=== PATIENT | female | born 1930 | race Caucasian/White ===

== ENCOUNTER → 2016-09-13 | Outpatient (CLI) | payer MEDICARE, OTHER ==
[~2016-09-13] MED LIST: BARIUM SULFATE 40% (APPLE) 148 GM PWD. PO ONE
--- NOTE | 2016-09-13 11:55 | RAD ---
Fluoroscopic swallow study 09/05/2016 Indication: Dysphasia. Comparison: None. Findings: Video swallow study fluoroscopy was obtained in conjunction with a member from the speech pathology department with multiple barium consistencies self administered by the patient. There are shallow laryngeal penetration with thin barium consistency utilizing a straw. No aspiration with multiple barium consistencies. There is a prominent cricopharyngeal bar anterior to C5-C6. Total fluoroscopy time: 2.5 minutes. Impression: Laryngeal penetration without aspiration. Please see separate dictated speech pathology report for additional findings and recommendations.
== END | disposition home or self-care (01) ==
LOC: RAD 08:00
PROVIDERS: ATTEND Internal Medicine
DX: R13.12 Dysphagia, oropharyngeal phase (principal)
CPT/HCPCS: 74230; 92611; G8996; G8997; G8998

== ENCOUNTER 2018-07-03 10:49 | Emergency (ER) | payer MEDICARE, OTHER ==
[~2018-07-03] VITALS: Ht 160 cm; Wt 49.9 kg
[2018-07-03] MEDS ORDERED: IPRATRPIUM/ALBUTEROL 0.5/2.5MG 3 ML NEBU. NEB ONE (11:00)
[2018-07-03] MEDS ORDERED: BREO ELLIPTA 11 EACH IH (11:20)
[2018-07-03] MEDS ORDERED: MEMA1CAP3 PO (11:20)
[2018-07-03] MEDS ORDERED: IPRA3AMP29 NEB (11:20)
[2018-07-03] MEDS ORDERED: LISI10TA2 PO (11:20)
[2018-07-03] MEDS ORDERED: MULT-503 PO (11:20)
[2018-07-03] MEDS ORDERED: GUAI100L27 PO (11:20)
--- NOTE | 2018-07-03 11:23 | RAD ---
PORTABLE CHEST 1V History: Cough Comparison: October 11, 2017 Findings: Single view of the chest is submitted. There is some more coarse interstitial reticular opacity bilaterally, radiographically fairly similar. There is no new lobar consolidation, pleural fluid, pneumothorax. Heart size is stable, within normal limits. There are again likely some small nodular opacities of the hemithoraces otherwise difficult to compare, also small likely calcified granuloma on the left as seen previously. Impression: 1. There is no new lobar consolidation. There is some interstitial and reticular opacity bilaterally, component of interstitial lung disease possible. There are also likely some small nodular opacities bilaterally as seen previously difficult to accurately compare, better evaluated by nonemergent chest CT. Electronically signed by: Luther Mcneil MD (07/03/2018 11:19 AM) [id number]
--- NOTE | 2018-07-03 11:27 | RAD ---
Pelvis with right hip, 3 views, 07/03/2018: HISTORY: Fall, pain There is severe bony demineralization. An internal metallic fixation device is in place transfixing an old healed intertrochanteric fracture of the right hip. No acute fracture or dislocation is identified. There is mild narrowing of the right hip joint with mild marginal spurring. Moderate degenerative change is evident in the lower lumbar spine. Moderate scattered arterial calcifications are present. IMPRESSION: 1. Severe bony demineralization. 2. Old, healed, internally fixed right hip fracture. 3. No acute bony abnormality is detected. Electronically signed by: Alvarez Jiménez MD (07/03/2018 11:25 AM) [facility]
--- NOTE | 2018-07-03 11:45 | RAD ---
CT head without contrast and CT cervical spine without contrast dated 07/03/2018. No comparison available. Clinical data indication: Pain after fall. TECHNIQUE: Contiguous axial imaging the head was performed from skull base to vertex. No contrast administered. In addition, axial imaging of the cervical spine acquired with thin cut coronal and sagittal reconstruction. One or more of the following individualized dose reduction techniques were utilized for this examination: 1. Automated exposure control 2. Adjustment of the mA and/or kV according to patient size 3. Use of iterative reconstruction technique. FINDINGS: Ventricles and sulci are mildly prominent for age. No midline shift or mass effect. Mild patchy low density in the deep/subcortical periventricular white matter. No hemorrhage or extra-axial collection. Posterior fossa and brainstem unremarkable. Mild mucosal thickening of the bilateral ethmoid air cells. The visualized paranasal sinuses and mastoid air cells are otherwise clear. No apparent calvarial abnormality. Images of the cervical spine were acquired from skull base to mid T3. Slight anterolisthesis of C3 on C4 with cyst mild retrolisthesis of C5 on C6 and C6 on C7. There is mild superior endplate wedging of the T1 vertebral body without discrete fracture line. Vertebral body heights are otherwise maintained. No prevertebral soft tissue swelling. The posterior elements are intact. No apparent acute fracture line. Moderate endplate hypertrophic changes throughout. Severe disc space narrowing at C4-C5, C5-C6 and C6-C7. Moderate to severe multilevel uncovertebral spurring and facet arthropathy. There is resultant mild to moderate central stenosis at C4-C5, C5-C6 and C6-C7 with moderate to severe foraminal narrowing at these levels. Visualized soft tissue structures unremarkable. Low-density nodule of the left lobe thyroid gland measures 1.4 cm. Limited images of the lung apices show a small noncalcified pulmonary nodule in the left upper lobe on image 52 that measures 5 mm. There is also a noncalcified nodule in the right upper lobe on image 52 that measures 5 mm. Noncalcified nodule in the right upper lobe on image 56 measures 6 mm. Couple of additional smaller noncalcified nodules scattered throughout. There is a nodular density in the left upper lobe anteriorly on image 52 that measures 8 mm. IMPRESSION HEAD: 1. No evidence of acute intracranial hemorrhage or mass. 2. Mild chronic small vessel ischemic changes and atrophy. IMPRESSION CERVICAL SPINE: 1. No evidence of fracture or malalignment. 2. Moderate multilevel spondylosis. 3. Mild superior endplate wedge compression deformity of T1, likely remote. 4. Multiple noncalcified pulmonary nodules scattered throughout the bilateral upper lobes, indeterminate. This could be inflammatory or neoplastic. Correlate clinically. Electronically signed by: Joshua Grey MD (07/03/2018 11:42 AM) [email or web address]
[2018-07-03 11:54] LABS: BASO % 0 % (0-3); EOS % 0 % (0-3); HEMATOCRIT 35.1 % (36.0-47.0); HEMOGLOBIN 11.1 g/dL (12.0-15.5); LYMPH # 0.4 x10^3/uL (1.0-4.8); LYMPH % 5 % (24-48); MEAN CORPUSCULAR HEMOGLOBIN 28 pg (25-35); MEAN CORPUSCULAR HGB CONC 32 g/dL (31-37); MEAN CORPUSCULAR VOLUME 89 fL (79-100); MONO # 0.7 x10^3/uL (0.0-1.1); MONO % 9 % (0-9); NEUT # 6.9 x10^3uL (1.8-7.7); NEUT % 86 % (31-73); PLATELET COUNT 258 x10^3/uL (140-400); RED BLOOD COUNT 3.95 x10^6/uL (3.50-5.40); RED CELL DISTRIBUTION WIDTH 15.7 % (11.5-14.5)
[2018-07-03 12:18] LABS: % BANDS 17 % (0-9); % LYMPHS 2 % (24-48); % MONOS 6 % (0-10); % SEGS 75 % (35-66); PLT ESTIMATE ADEQUATE (ADEQUATE)
[2018-07-03 12:21] LABS: CALCIUM 9.8 mg/dL (8.5-10.1); CREATININE 1.1 mg/dL (0.6-1.0); POTASSIUM 4.1 mmol/L (3.5-5.1)
[2018-07-03 12:25] LABS: ALBUMIN 3.3 g/dL (3.4-5.0); ALBUMIN/GLOBULIN RATIO 0.8 (1.0-1.7); TOTAL BILIRUBIN 0.4 mg/dL (0.2-1.0); TOTAL PROTEIN 7.2 g/dL (6.4-8.2)
--- NOTE | 2018-07-03 13:30 | PHYS DOC ---
Past Medical History Past Medical History: Anemia, Arthritis, COPD, Dementia, Hypertension, Other Additional Past Medical Histor: PVD Past Surgical History: Other Additional Past Surgical Histo: unknown surgical history Alcohol Use: None Drug Use: None Adult General Chief Complaint Chief Complaint: MECHANICAL FALL HPI HPI Patient is a 88 [facility] female resident of [facility] with history of dementia who brought in by EMS because of a fall and right hip pain. Patient had an unwitnessed fall this morning from her bed and found on the floor and [facility] staff was concerned for right hip injury. Patient has dementia and unable to give history. Review of Systems Review of Systems Unable to obtain because of dementia Current Medications Current Medications Current Medications Medications (Trade) Dose Ordered Sig/Dulce Start Time Stop Time Status Last Admin Dose Admin Albuterol/ Ipratropium (Duoneb) 3 ml 1X ONCE 07/03/18 11:00 07/03/18 11:01 DC 07/03/18 11:36 3 ML Allergies Allergies Allergies Coded Allergies Type Severity Reaction Last Updated Verified No Known Drug Allergies 09/13/16 No Physical Exam Physical Exam Constitutional: Well nourished, no acute distress, non-toxic appearance. [] HENT: Normocephalic, atraumatic. Eyes: PERRLA, EOMI, conjunctiva normal, no discharge. [] Neck: Normal range of motion, no tenderness, supple, no stridor. [] Cardiovascular:Heart rate regular rhythm, no murmur [] Lungs & Thorax: Bilateral breath sounds clear to auscultation [] Abdomen: Bowel sounds normal, soft, no tenderness, no masses, no pulsatile masses. [] Skin: Warm, dry, no erythema, no rash. [] Back: No tenderness, no CVA tenderness. [] Extremities: No sign of hips injury, able to bend bilateral hip without problem, no tenderness, no cyanosis, no clubbing, ROM intact, no edema. [] Neurologic: Alert and oriented X 1, normal motor function, normal sensory function, no focal deficits noted. [] Psychologic: Unable to evaluate. Current Patient Data Vital Signs Vital Signs Date Time Temp Pulse Resp B/P (MAP) Pulse Ox O2 Delivery O2 Flow Rate FiO2 07/03/18 12:39 92 24 95 07/03/18 11:36 Nasal Cannula 2.0 07/03/18 10:50 98.1 151/83 (105) 98.1 Lab Values Laboratory Tests Test 07/03/18 11:40 White Blood Count 8.0 x10^3/uL (4.0-11.0) Red Blood Count 3.95 x10^6/uL (3.50-5.40) Hemoglobin 11.1 g/dL (12.0-15.5) L Hematocrit 35.1 % (36.0-47.0) L Mean Corpuscular Volume 89 fL (79-100) Mean Corpuscular Hemoglobin 28 pg (25-35) Mean Corpuscular Hemoglobin Concent 32 g/dL (31-37) Red Cell Distribution Width 15.7 % (11.5-14.5) H Platelet Count 258 x10^3/uL (140-400) Neutrophils (%) (Auto) 86 % (31-73) H Lymphocytes (%) (Auto) 5 % (24-48) L Monocytes (%) (Auto) 9 % (0-9) Eosinophils (%) (Auto) 0 % (0-3) Basophils (%) (Auto) 0 % (0-3) Neutrophils # (Auto) 6.9 x10^3uL (1.8-7.7) Lymphocytes # (Auto) 0.4 x10^3/uL (1.0-4.8) L Monocytes # (Auto) 0.7 x10^3/uL (0.0-1.1) Eosinophils # (Auto) 0.0 x10^3/uL (0.0-0.7) Basophils # (Auto) 0.0 x10^3/uL (0.0-0.2) Segmented Neutrophils % 75 % (35-66) H Band Neutrophils % 17 % (0-9) H Lymphocytes % 2 % (24-48) L Monocytes % 6 % (0-10) Platelet Estimate Adequate (ADEQUATE) Sodium Level 141 mmol/L (136-145) Potassium Level 4.1 mmol/L (3.5-5.1) Chloride Level 102 mmol/L (98-107) Carbon Dioxide Level 26 mmol/L (21-32) Anion Gap 13 (6-14) Blood Urea Nitrogen 34 mg/dL (7-20) H Creatinine 1.1 mg/dL (0.6-1.0) H Estimated GFR (Cockcroft-Gault) 47.0 BUN/Creatinine Ratio 31 (6-20) H Glucose Level 98 mg/dL (70-99) Lactic Acid Level 1.2 mmol/L (0.4-2.0) Calcium Level 9.8 mg/dL (8.5-10.1) Total Bilirubin 0.4 mg/dL (0.2-1.0) Aspartate Amino Transferase (AST) 20 U/L (15-37) Alanine Aminotransferase (ALT) 16 U/L (14-59) Alkaline Phosphatase 73 U/L (46-116) Creatine Kinase 41 U/L (26-192) Troponin I Quantitative < 0.017 ng/mL (0.000-0.055) WO-Ebs-M-Type Natriuretic Peptide 1307 pg/mL (0-449) H Total Protein 7.2 g/dL (6.4-8.2) Albumin 3.3 g/dL (3.4-5.0) L Albumin/Globulin Ratio 0.8 (1.0-1.7) L Laboratory Tests 07/03/18 11:40 Laboratory Tests 07/03/18 11:40 EKG EKG [] Radiology/Procedures Radiology/Procedures [facility] [address] [place], [place] [id number] IMAGING REPORT Signed PATIENT: SULLY GAMINO ACCOUNT: [id number] : 1930 LOCATION: ER AGE: 88 SEX: F EXAM STATUS: PRE ER ORD. PHYSICIAN: MELISSA ROSENBAUM MD REASON: cough PROCEDURE: PORTABLE CHEST 1V PORTABLE CHEST 1V History: Cough Comparison: October 11, 2017 Findings: Single view of the chest is submitted. There is some more coarse interstitial reticular opacity bilaterally, radiographically fairly similar. There is no new lobar consolidation, pleural fluid, pneumothorax. Heart size is stable, within normal limits. There are again likely some small nodular opacities of the hemithoraces otherwise difficult to compare, also small likely calcified granuloma on the left as seen previously. Impression: 1. There is no new lobar consolidation. There is some interstitial and reticular opacity bilaterally, component of interstitial lung disease possible. There are also likely some small nodular opacities bilaterally as seen previously difficult to accurately compare, better evaluated by nonemergent chest CT. Electronically signed by: Elle Vazquez MD (07/03/2018 11:19 AM) [facility] DICTATED and SIGNED BY: ELLE VAZQUEZ MD DATE: 07/03/18 1119 [facility] [address] [place] [address] IMAGING REPORT Signed PATIENT: SULLY GAMINO ACCOUNT: [id number] : 1930 LOCATION: ER AGE: 88 SEX: F EXAM STATUS: REG ER ORD. PHYSICIAN: MELISSA ROSENBAUM MD REASON: fall PROCEDURE: CT HEAD AND CERVICAL SPINE WO CT head without contrast and CT cervical spine without contrast dated 07/03/2018. No comparison available. Clinical data indication: Pain after fall. TECHNIQUE: Contiguous axial imaging the head was performed from skull base to vertex. No contrast administered. In addition, axial imaging of the cervical spine acquired with thin cut coronal and sagittal reconstruction. One or more of the following individualized dose reduction techniques were utilized for this examination: 1. Automated exposure control 2. Adjustment of the mA and/or kV according to patient size 3. Use of iterative reconstruction technique. FINDINGS: Ventricles and sulci are mildly prominent for age. No midline shift or mass effect. Mild patchy low density in the deep/subcortical periventricular white matter. No hemorrhage or extra-axial collection. Posterior fossa and brainstem unremarkable. Mild mucosal thickening of the bilateral ethmoid air cells. The visualized paranasal sinuses and mastoid air cells are otherwise clear. No apparent calvarial abnormality. Images of the cervical spine were acquired from skull base to mid T3. Slight anterolisthesis of C3 on C4 with cyst mild retrolisthesis of C5 on C6 and C6 on C7. There is mild superior endplate wedging of the T1 vertebral body without discrete fracture line. Vertebral body heights are otherwise maintained. No prevertebral soft tissue swelling. The posterior elements are intact. No apparent acute fracture line. Moderate endplate hypertrophic changes throughout. Severe disc space narrowing at C4-C5, C5-C6 and C6-C7. Moderate to severe multilevel uncovertebral spurring and facet arthropathy. There is resultant mild to moderate central stenosis at C4-C5, C5-C6 and C6-C7 with moderate to severe foraminal narrowing at these levels. Visualized soft tissue structures unremarkable. Low-density nodule of the left lobe thyroid gland measures 1.4 cm. Limited images of the lung apices show a small noncalcified pulmonary nodule in the left upper lobe on image 52 that measures 5 mm. There is also a noncalcified nodule in the right upper lobe on image 52 that measures 5 mm. Noncalcified nodule in the right upper lobe on image 56 measures 6 mm. Couple of additional smaller noncalcified nodules scattered throughout. There is a nodular density in the left upper lobe anteriorly on image 52 that measures 8 mm. IMPRESSION HEAD: 1. No evidence of acute intracranial hemorrhage or mass. 2. Mild chronic small vessel ischemic changes and atrophy. IMPRESSION CERVICAL SPINE: 1. No evidence of fracture or malalignment. 2. Moderate multilevel spondylosis. 3. Mild superior endplate wedge compression deformity of T1, likely remote. 4. Multiple noncalcified pulmonary nodules scattered throughout the bilateral upper lobes, indeterminate. This could be inflammatory or neoplastic. Correlate clinically. Electronically signed by: Joshua Grey MD (07/03/2018 11:42 AM) [facility] DICTATED and SIGNED BY: JOSHUA GREY MD DATE: 07/03/18 1142 [facility] [address] [place] [address] IMAGING REPORT Signed PATIENT: SULLY GAMINO ACCOUNT: [id number] : 1930 LOCATION: ER AGE: 88 SEX: F EXAM STATUS: REG ER ORD. PHYSICIAN: MELISSA ROSENBAUM MD REASON: Fall from bed this AM, rt hip pain. PROCEDURE: HIP RIGHT 2V WITH PELVIS Pelvis with right hip, 3 views, 07/03/2018: HISTORY: Fall, pain There is severe bony demineralization. An internal metallic fixation device is in place transfixing an old healed intertrochanteric fracture of the right hip. No acute fracture or dislocation is identified. There is mild narrowing of the right hip joint with mild marginal spurring. Moderate degenerative change is evident in the lower lumbar spine. Moderate scattered arterial calcifications are present. IMPRESSION: 1. Severe bony demineralization. 2. Old, healed, internally fixed right hip fracture. 3. No acute bony abnormality is detected. Electronically signed by: Alvarez Jiménez MD (07/03/2018 11:25 AM) [facility] DICTATED and SIGNED BY: ALVAREZ JIMÉNEZ MD DATE: 07/03/18 1125 Course & Med Decision Making Course & Med Decision Making Pertinent Labs and Imaging studies reviewed. (See chart for details) Evaluation of patient in ER showed 88-year-old female patient with a fall at [facility] and concern for hip injuries. Patient had unremarkable CT head and chest and pelvis and hip x-ray was able to open bilateral hips without problem. Labs did not show acute finding. Plan discharge patient to [facility] with instruction for prevention of fall. Dragon Disclaimer Dragon Disclaimer This electronic medical record was generated, in whole or in part, using a voice recognition dictation system. Departure Departure Impression: Primary Impression: Fall at [facility] Additional Impression: Dementia Disposition: 01 HOME, SELF-CARE Condition: STABLE Referrals: ARIS CRUZ MD (PCP) Patient Instructions: Fall Prevention in Hospitals Additional Instructions: Continue current treatment Problem Qualifiers Primary Impression: Fall at [facility] Encounter type: initial encounter Qualified Codes: W19.XXXA - Unspecified fall, initial encounter; Y92.129 - Unspecified place in [facility] as the place of occurrence of the external cause Additional Impression: Dementia Dementia type: unspecified type Dementia behavioral disturbance: without behavioral disturbance Qualified Codes: F03.90 - Unspecified dementia without behavioral disturbance MELISSA ROSENBAUM MD July 03, 2018 13:30
[2018-07-03 17:00] VITALS: BP 97/67
== END 2018-07-03 13:34 | disposition home or self-care (01) ==
LOC: ER 10:49
DX: S79.911A Unspecified injury of right hip, initial encounter (principal); F03.90 Unspecified dementia, unspecified severity, without behavioral disturbance, psychotic disturbance, mood disturbance, and anxiety; I10 Essential (primary) hypertension; J44.9 Chronic obstructive pulmonary disease, unspecified; W06.XXXA Fall from bed, initial encounter; Y93.89 Activity, other specified; Y92.89 Other specified places as the place of occurrence of the external cause; Y99.8 Other external cause status
CPT/HCPCS: 36415; 70450; 71045; 72125; 73502; 80053; 82550; 83605; 83880; 84484; 85007; 85025; 87040; 94640; 99285; J7620